=== PATIENT | female | born 1960 | race African-American/Black ===

== ENCOUNTER 2017-04-05 06:46 | Day surgery (SDC) | payer BC ==
--- NOTE | ~2017-04-05 | EGD ---
EGD REPORT [facility] [address] [address] NAME: TESSY CHANG : 60 STATUS : REG [facility]#: [id number] AGE: 56 ADM/REG DATE : 04/05/17 MR#: [id number] REPORT SERV DATE: 04/05/17 DICTATED BY: FABIAN ENCARNACION DATE: 04/05/17 REPORT STATUS : Draft TRANSCRIBED BY: [facility] DATE: 04/05/17 [facility] Center Patient Name: Tessy Chang Date of : 1960 Attending MD: FABIAN ENCARNACION MD Procedure Date No Time: 04/05/2017 Procedure: Colonoscopy Indications: High risk colon cancer surveillance: Personal history of colonic polyps Referring MD: PETER NAVARRO MD Medicines: Propofol per Anesthesia Complications: No immediate complications. Procedure: Pre-Anesthesia Assessment: - ASA Grade Assessment: II - A patient with mild systemic disease. After I obtained informed consent, the scope was passed under direct vision. Throughout the procedure, the patient's blood pressure, pulse, and oxygen saturations were monitored continuously. The CF [id number] was introduced through the anus and advanced to the cecum, identified by appendiceal orifice and ileocecal valve. The colonoscopy was performed without difficulty. The patient tolerated the procedure well. The quality of the bowel preparation was good. Findings: The perianal and digital rectal examinations were normal. A sessile polyp was found in the ascending colon. The polyp was 7 mm in size. The polyp was removed with a hot snare. Resection and retrieval were complete. A few small-mouthed diverticula were found in the sigmoid colon and in the descending colon. Internal hemorrhoids were found during retroflexion and were Grade I (internal hemorrhoids that do not prolapse). The rest of the colon was normal. Impression: - One 7 mm polyp in the ascending colon. Resected and retrieved. - Diverticulosis in the sigmoid colon and in the descending colon. - Internal hemorrhoids. Recommendation: - Patient has a contact number available for emergencies. The signs and symptoms of potential delayed complications were discussed with the patient. Return to EGD REPORT [address] [address] NAME: TESSY CHANG : 60 [place] [facility] [place] [id number] AGE: 56 ADM/REG DATE : 04/05/17 MR#: [id number] REPORT SERV DATE: 04/05/17 DICTATED BY: FABIAN ENCARNACION DATE: 04/05/17 REPORT STATUS : Draft TRANSCRIBED BY: [employer] DATE: 04/05/17 normal activities tomorrow. Written discharge instructions were provided to the patient. - Regular diet. - Patient has a contact number available for emergencies. The signs and symptoms of potential delayed complications were discussed with the patient. Return to normal activities tomorrow. Written discharge instructions were provided to the patient. - Regular diet. - Patient has a contact number available for emergencies. The signs and symptoms of potential delayed complications were discussed with the patient. Return to normal activities tomorrow. Written discharge instructions were provided to the patient. - Continue present medications. Procedure Code(s): --- Professional --- 80143, Colonoscopy, flexible, proximal to splenic flexure; with removal of tumor(s), polyp(s), or other lesion(s) by snare technique Diagnosis Code(s): --- Professional --- D12.2, Benign neoplasm of ascending colon K64.0, First degree hemorrhoids K57.30, Diverticulosis of large intestine without perforation or abscess without bleeding Z86.010, Personal history of colonic polyps CPT copyright 2013 [employer]. All rights reserved. The codes documented in this report are preliminary and upon crepe sole scourer review may be revised to meet current compliance requirements. Fabian Encarnacion MD FABIAN ENCARNACION MD 04/05/2017 8:10 AM This report has been signed electronically. Number of Addenda: 0 Note Initiated On: 04/05/2017 7:43 AM Scope Withdrawal Time 0 hours 7 minutes 56 seconds [address] [place] [id number]
[~2017-04-05 06:46] MED LIST: LIPITOR10 PO
== END 2017-04-05 23:59 | disposition home health service (06) ==
LOC: DMU 06:46
PROVIDERS: Internal Medicine Gastroenterology
PROC: 0DBK8ZZ Excision of Ascending Colon, Via Natural or Artificial Opening Endoscopic (ICD-10-PCS; principal; 2017-04-05 08:30)
DX: Z12.11 Encounter for screening for malignant neoplasm of colon (principal); D12.2 Benign neoplasm of ascending colon; K64.0 First degree hemorrhoids; K57.30 Diverticulosis of large intestine without perforation or abscess without bleeding; E78.00 Pure hypercholesterolemia, unspecified; Z86.010 Personal history of colon polyps; Z79.899 Other long term (current) drug therapy; Z98.51 Tubal ligation status; Z98.890 Other specified postprocedural states
CPT/HCPCS: 88305